=== PATIENT | male | born 1970 | race Caucasian/White ===

== ENCOUNTER 2022-04-04 18:39 | Emergency (ER) | payer OTHER ==
[~2022-04-04 18:39] MED LIST: KEFLEX250 MG PO
[2022-04-04 20:15] LABS: BILIRUBIN NEGATIVE (NEGATIVE); BLOOD NEGATIVE Ery/uL (NEGATIVE); CLARITY CLEAR (CLEAR); COLOR YELLOW (YELLOW); GLUCOSE (U) NORMAL (NORMAL); LEUKOCYTES NEGATIVE Leu/uL (NEGATIVE); NITRITE NEGATIVE (NEGATIVE); PROTEIN NEGATIVE (NEGATIVE); UROBILINOGEN 0.2 mg/dL (0.2-1.0)
[2022-04-04] MEDS ORDERED: NAPROXEN500 MG PO (20:26)
[2022-04-04] MEDS ORDERED: ROBAXIN750 MG PO (20:26)
[2022-04-04 20:36] LABS: BASOPHIL 0.4 % (0-2); EOSINOPHIL 0.6 % (0-5); HCT 44.5 % (42.0-52.0); HGB 14.9 g/dl (13.2-18.0); LYMPHOCYTE 9.1 % (15-48); MCH 30.7 pg (25.0-31.0); MCHC 33.5 g/dL (32.0-36.0); MCV 91.8 fL (78.0-100.0); MONOCYTE 6.3 % (0-12); MPV 9.6 fL (6.0-9.5); NEUTROPHIL 83.2 % (41-80); NRBC 0; PLT 264 K/uL (150-400); RBC 4.85 M/uL (4.70-6.00); RDW 12.8 % (11.5-14.0); WBC 14.3 K/uL (4.0-10.5)
[2022-04-04 20:56] LABS: ALBUMIN 3.9 g/dL (3.4-5.0); BILIRUBIN - TOTAL 0.3 mg/dL (0.2-1.0); BUN/CREAT RATIO (CALC) 18.3 RATIO; CREATININE 0.82 mg/dL (0.67-1.17); GLOBULIN (CALCULATION) 3.6 g/dL; POTASSIUM 4.1 mmol/L (3.5-5.1); TOTAL PROTEIN 7.5 g/dL (6.4-8.2)
== END 2022-04-05 01:53 | disposition other institution (70) ==
LOC: FER 18:39
PROVIDERS: Emergency Medicine
DX: M97.01XA Periprosthetic fracture around internal prosthetic right hip joint, initial encounter (principal); S32.10XA Unspecified fracture of sacrum, initial encounter for closed fracture; Z96.641 Presence of right artificial hip joint; Z20.822 Contact with and (suspected) exposure to COVID-19; Z88.5 Allergy status to narcotic agent; W19.XXXA Unspecified fall, initial encounter
CPT/HCPCS: 36415; 72131; 73552; 80053; 81003; 85025; J1170; J2405; J7030; U0002